=== PATIENT | male | born 1950 | race Caucasian/White ===

== ENCOUNTER → 2023-10-30 09:56 | Outpatient (BNVA) | payer SELFPAY | PROVIDERS: PCP Family Medicine; Visit Provider Dermatology | DX: Z01.89 Encounter for other specified special examinations (principal) ==

== ENCOUNTER → 2024-09-29 13:00 | Outpatient (BNVA) | payer MEDICARE, SELFPAY | PROVIDERS: PCP Family Medicine; Visit Provider Family Medicine | DX: E55.9 Vitamin D deficiency, unspecified (principal); I10 Essential (primary) hypertension; I25.10 Atherosclerotic heart disease of native coronary artery without angina pectoris; I65.23 Occlusion and stenosis of bilateral carotid arteries; E78.2 Mixed hyperlipidemia; N40.0 Benign prostatic hyperplasia without lower urinary tract symptoms; M1A.09X0 Idiopathic chronic gout, multiple sites, without tophus (tophi); G62.9 Polyneuropathy, unspecified; R79.89 Other specified abnormal findings of blood chemistry; Z12.5 Encounter for screening for malignant neoplasm of prostate | CPT/HCPCS: 80053; 80061; 82306; 82607; 82728; 82746; 83036; 83540; 83735; 84443; 84550; 85025; G0103 ==

== ENCOUNTER → 2025-02-05 14:05 | Outpatient (BNVA) | payer MEDICARE, SELFPAY | PROVIDERS: PCP Family Medicine; Visit Provider Family Medicine | DX: E87.6 Hypokalemia (principal); M1A.09X0 Idiopathic chronic gout, multiple sites, without tophus (tophi); G62.9 Polyneuropathy, unspecified; R73.9 Hyperglycemia, unspecified | CPT/HCPCS: 80048; 83036; 84550; 85651; 86140 ==

== ENCOUNTER 2025-02-12 09:00 | Outpatient (CLI) | payer MEDICARE, SELFPAY ==
--- NOTE | 2025-02-12 09:04 | XR_ITS ---
WS: [id number] Exam: XR lumbar spine 2-3V* [id number] Date/Time of Exam: 02/12/2025 9:15 AM Reason For Exam: G62.9 - Polyneuropathy, unspecified No acute fracture or malalignment. Degenerative narrowing of the L3-4 and L4-5 discs. Mild spondylosis. 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 XR/XR lumbar spine 2-3V* [id number] IMPRESSION: 1. Degenerative changes as noted above. No fracture or malalignment.
== END 2025-02-12 09:01 | disposition home or self-care (01) ==
PROVIDERS: PCP Family Medicine; Visit Provider Family Medicine
DX: G62.9 Polyneuropathy, unspecified (principal); M51.360 Other intervertebral disc degeneration, lumbar region with discogenic back pain only; M47.896 Other spondylosis, lumbar region
CPT/HCPCS: 72100